=== PATIENT | female | born 1990 ===

== ENCOUNTER 2024-12-28 09:55 | Outpatient (AMB) | payer BC, SELFPAY ==
--- NOTE | 2024-12-28 09:57 | A.OFFPC_ITS ---
Vital Signs 12/28/24 10:00 Height 5 ft 8.31 in Weight 174 lb BMI 26.2 BP 125/74 Blood Pressure Location Rt brachial Position Sitting Pulse 77 Pulse Source Pulse Oximeter Temp 99.6 F Temp Source Oral Pulse Oximetry (%) 95 Oxygen Delivery Method Room Air Intake Visit Reasons: SPACER TYPE BAR AND SEGMENT warts hands Accompanied by: Self / Same As Patient Allergies No Known Allergies Allergy (Verified 12/28/24 09:58) Tobacco use date assessed: 12/28/24 Dental Screening Dental Screen Date: 12/28/24 Did you have a dental visit in the last 12 months?: Yes Was dental information given to patient?: Patient has dentist HPI HPI Comments History of Present Illness Details History of Present Illness The patient is a 34-year-old female presenting with management of warts. Warts: - The patient reports having warts for a pproximately seven years, which have been spreading and causing discomfort. - She [facility] and was referred to a portal architect but requires a primary care referral to proceed. Asthma: - The patient has a history of asthma, w ith no recent emergency room visits for asthma attacks, although she experienced an allergic reaction in February. - She reports that her inhaler is runnin g low, and she anticipates increased symptoms during the winter months. Depression and Anxiety: - The patient has been diagnosed with se von anxiety and depression, for which she is currently under the care of a psychiatrist and therapist. - She is on medications including clonaz epam and escitalopram and attends therapy sessions bi-weekly. Alcohol Use: - The patient reports consuming alcohol approximately three times a week, often in response to stress or social situations. - She acknowledges difficulty in control ling her alcohol intake and is working on managing her anxiety to reduce self-medication. Preventative Care: Pap Smear: - The patient has never had a Pap smear and is aware of its importance in screening for cervical cancer. - She expresses readiness to undergo the procedure and discusses options for having it done with her primary care physician or an IRRIGATION FLUME LAYER. Review of Systems - Respiratory: Denies wheezing, reports asthma managed with inhaler. - Psychiatric: Reports depression and an xiety, managed with medication and therapy. - Gastrointestinal: Reports history of g astric sleeve surgery, current eating habits minimal due to stress. 10-point ROS reviewed and negative excep t as noted in HPI Past Medical History - Asthma, managed with inhaler - Depression and anxiety, managed with c lonazepam and escitalopram - History of gastric sleeve surgery perf ormed three years ago in [facility] Maintenance - Preventative care: Pap smear discussed for cervical cancer screening - Blood work ordered to establish [facility] health status Physical Exam General: Well-appearing, in no acute distress. Vital signs: Within normal limits. HEENT: Normocephalic, atraumatic. PERRLA, EOMI. Conjunctiva clear, sclera anicteric. Oropharynx clear, mucous membranes moist. TMs intact bilaterally. Neck: Supple, no lymphadenopathy, no thyromegaly, no JVD or carotid bruits. Cardiovascular: RRR, normal S1/S2, no murmurs, rubs, or gallops. Peripheral pulses 2+ and symmetric. No edema. Respiratory: Lungs clear to auscultation bilaterally, no wheezes, rales, or rhonchi. Normal effort. No wheezing noted during examination. Abdomen: Soft, non-tender, non-distended. Normoactive bowel sounds. No hepatosplenomegaly, no masses. MSK: Full range of motion, no joint swelling or deformity. Normal gait. Skin: Warm, dry, intact. No rashes, lesions, or pallor. Presence of calluses noted, spreading and causing discomfort. Neuro: Alert and oriented x3. Cranial nerves II-XII intact. Strength 5/5 throughout. Sensation intact. Reflexes 2+ symmetric. Normal coordination and gait. Psych: Appropriate mood and affect. Normal judgment and insight. Patient reports depression and severe anxiety, currently under treatment with clonazepam and escitalopram, and sees a therapist and psychiatrist regularly. Plan 1. Warts - Referral to portal architect provided for further evaluation and management. - Topical medication prescribed to manag e symptoms until dermatology appointment. 2. Asthma - Prescription for albuterol inhaler sen t to pharmacy to manage asthma symptoms. 3. Depression And Anxiety - Continued management with clonazepam a nd escitalopram, with ongoing therapy sessions. 4. Alcohol Use - Encouraged to continue working on duy ging anxiety to reduce alcohol consumption. 5. Preventative Care: Pap Smear - Discussed the importance of Pap smear for cervical cancer screening and offered to perform the procedure or refer to IRRIGATION FLUME LAYER. Discussion Notes During the visit, I discussed the management of the patient's warts, including a referral to a portal architect and the use of topical medication. We reviewed her asthma management, ensuring she has an albuterol inhaler. I emphasized the importance of regular therapy for her depression and anxiety and encouraged her to manage her alcohol use. We also discussed the significance of a Pap smear for cervical cancer screening, offering to perform it or refer her to an IRRIGATION FLUME LAYER. Patient was informed and verbally consented to the use of an ambient scribe for clinic note documentation during this visit. Patient Instructions - Follow up with the portal architect as sc heduled for warts management. - Use the prescribed topical medication for warts until the dermatology appointment. - Use the albuterol inhaler as needed fo r asthma symptoms. - Continue attending therapy sessions an d taking prescribed medications for depression and anxiety. - Consider scheduling a Pap smear for ce rvical cancer screening. Total time spent caring for the patient today was 30 minutes. This includes time spent before the visit reviewing the chart, time spent documenting, and time spent reviewing laboratory results, diagnostic imaging, medications, performing a medically necessary evaluation, counseling on diagnoses, care co ordination, ordering appropriate tests, ordering appropriate medications. [facility] Medical History (Updated 12/28/24 @ 10:22 by Lake Waller MD) Warts Family History (Updated 12/28/24 @ 10:07 by Wendy Blas CMA) Mother No problems noted. Father Diabetes Social History Housing: House Patient Tobacco Use Status: Current someday Tobacco user service: No Current occupational status: employed Cognitive needs: No Hearing needs: No Vision needs: No Questionnaire PHQ-9 Over the last 2 weeks, how often have you been bothered by any of the following problems? 1. Little interest or pleasure in doing things: not at all 2. Feeling down, depressed, or hopeless: several days 3. Trouble falling or staying asleep, or sleeping too much: several days 4. Feeling tired or having little energy: several days 5. Poor appetite or overeating: several days 6. Feeling bad about yourself - or that you are a failure or have let yourself or your family down: several days 7. Trouble concentrating on things, such as reading the newspaper or watching television: several days 8. Moving or speaking so slowly that other people could have noticed. Or the opposite - being so fidgety or restless that you have been moving around a lot more than usual: not at all 9. Thoughts that you would be better off or of hurting yourself in some way: not at all Total score: 6 Depression Screening Interpretation: Negative Depression Screening Done: Yes Source: Developed by Drs. Tereso Resendiz, Nery Hernández, Negro Wick and colleagues, with an educational bienvenido from [employer]. Thrive Questionnaire Date Thrive assessed: 12/28/24 I am a: Patient What is your living situation today?: I have a steady place to live Within the past 12 months, did the food you bought not last and you didn't have the money to get more?: Sometimes True Within the past 12 months, did you worry whether your food would run out before you got money to buy more?: Sometimes True Do you have trouble paying for medicines?: No Do you have trouble getting transportation to medical appointments?: No Do you have trouble paying your heating and electricity bill?: Yes Do you have trouble taking care of your child, family member or friend?: No Are you currently unemployed and looking for a job?: No Are you interested in more education?: I choose not to answer this question Please select the resources that you would like help with: Utilities Currently or been in a relationship where the following occur: I choose not to answer THRIVE Score: 3 AUDIT C Alcohol Use Questionnaire (AUDIT-C) 1. How often do you have a drink containing alcohol?: 2-3 times a week 2. How many drinks containing alcohol do you have on a typical day when you are drinking?: 3 or 4 3. How often do you have six or more drinks on one occasion?: Weekly Total Score: 7 Score Reviewed/Action Taken: Yes VINICIO-7 AMB Questionnaire VINICIO-7 Date VINICIO - 7 assessed: 12/28/24 Feeling nervous, anxious, or on edge: 3 = Nearly every day Not being able to stop or control worryin = Nearly every day Worrying too much about different things: 3 = Nearly every day Trouble relaxin = Nearly every day Being so restless that it is hard to sit still: 3 = Nearly every day Becoming easily annoyed or irritable: 3 = Nearly every day Feeling afraid as if something awful might happen: 3 = Nearly every day Total VINICIO-7 score (0-4 normal; 5-9 mild; 10-14 moderate; 15-21 severe): 21 Source: Developed by Drs. Tereso Resendiz, Nery Hernández, Negro Wick and colleagues, with an educational bienvenido from [employer]. Physical exam (Primary Care) Vital Signs: Last Vital Signs Temp 99.6 F 12/28/24 10:00 Pulse 77 12/28/24 10:00 BP 125/74 12/28/24 10:00 Pulse Ox 95 12/28/24 10:00 Oxygen Delivery Method Room Air 12/28/24 10:00 BMI result Body Mass Index 26.2 Tobacco/Smoking Status: Tobacco use Status Tobacco use date assessed 12/28/24 12/28/24 10:08 Patient Tobacco Use Status Current someday Tobacco 12/28/24 10:08 PHQ-9: PHQ-9 Score PHQ-9: Total score 6 12/28/24 10:08 Depression Screening Interpretation: Negative Thrive Assessment: Date of Thrive Assessment Date Thrive assessed 12/28/24 12/28/24 10:08 Currently or been in a relationship where the following occur: I choose not to answer Coding Level of Care Code New Pt Level 4 (62926) Diagnoses Warts B07.9 Mild intermittent asthma J45.20 Anxiety and depression F41.9; F32.A Alcohol use F10.90 History of gastric bypass Z98.84 Assessment & Plan Assessment & Plan (1) Warts: Code(s): B07.9 - Viral wart, unspecified Category: Medical (2) Mild intermittent asthma: Code(s): J45.20 - Mild intermittent asthma, uncomplicated (3) Anxiety and depression: Code(s): F41.9 - Anxiety disorder, unspecified; F32.A - Depression, unspecified (4) Alcohol use: Code(s): F10.90 - Alcohol use, unspecified, uncomplicated (5) History of gastric bypass: Code(s): Z98.84 - Bariatric surgery status Plan Orders: Orders Chlamydia Species Ab Panel Today Z13.9 - Encounter for screening, unspecified Hepatitis B Surface Antigen Today Z13.9 - Encounter for screening, unspecified Hepatitis C Antibody Today Z13.9 - Encounter for screening, unspecified Magnesium Today Z13.9 - Encounter for screening, unspecified Vitamin B12 and Folate Today Z13.9 - Encounter for screening, unspecified Vitamin B2 (Riboflavin) Today Z13.9 - Encounter for screening, unspecified Vitamin D 1,25 dihydroxy Today Z13.9 - Encounter for screening, unspecified Vitamin B6 Today Z13.9 - Encounter for screening, unspecified Vitamin B5 (Pantothenic Acid) Today Z13.9 - Encounter for screening, unspecified Complete Blood Count Auto Diff Today Z13.9 - Encounter for screening, unspecified Comprehensive Met. Panel Today Z13.9 - Encounter for screening, unspecified Hemoglobin A1c Today Z13.9 - Encounter for screening, unspecified CT NG by PCR Urine Today Z13.9 - Encounter for screening, unspecified Hepatitis B Surface Antibody Today Z13.9 - Encounter for screening, unspecified HIV Ab/Ag Today Z13.9 - Encounter for screening, unspecified Lipid Panel Today Z13.9 - Encounter for screening, unspecified Syphilis Screen Today Z13.9 - Encounter for screening, unspecified TSH reflex Free T4 Today Z13.9 - Encounter for screening, unspecified Zinc Today Z13.9 - Encounter for screening, unspecified Vitamin B3 (Niacin) Today Z13.9 - Encounter for screening, unspecified Vitamin B1 Today Z13.9 - Encounter for screening, unspecified Referrals Dermatology Referral B07.9 - Viral wart, unspecified Medications: New albuterol sulfate 90 mcg/actuation (Ventolin HFA) 2 puffs inhalation Q6H PRN 8.5 grams 0RF shortness of breath or wheezing salicylic acid 26% Apply to affected areas at bedtime 1 appl topical BEDTIME 10 mL 0RF B07.9 - Viral wart, unspecified
[2024-12-28 10:00] VITALS: BP 125/74; PULSE 77; TEMP 37.6; O2SAT 95; BMI 26.2
--- OUTSIDE RECORDS SUMMARY | 2024-12-28 11:36 | XMS_ITS | Clinical Summary ---
Author Organization [facility] Address [address] [place] [address] Phone Care Team Providers Care Communications And Signals Supervisor Name Role Phone Physician, No Pcp Primary Care Provider Unavaila ble Allergies Active Allergy Reactions Criticality Noted Date Comments [place] Anaphylaxis High 03/16/2024 Medications famotidine (PEPCID) 20 mg tablet Take 1 tablet (20 mg total) by mouth 2 (two) times a day. 10 tablet 03/16/2024 Active predniSONE (DELTASONE) 20 mg tablet Take 1 tablet (20 mg total) by mouth 1 (one) time each day. 10 tablet 03/16/2024 Active EPINEPHrine (EPIPEN) 0.3 mg/0.3 mL injection Inject 0.3 mL (0.3 mg total) into the thigh if needed for anaphylaxis . 1 each 03/16/2024 Active Surgical History Surgery Date Site/Laterality Comments OTHER SURGICAL HISTORY PROCEDURE: DENIES PREVIOUS SURGERY Family History Medical History Relation Name Comments Diabetes Father Hypertension Father Migraines Mother Stomach cancer Mother Relation Name Status Comments Brother Alive Father Alive Mother Alive Sister Alive Social History Tobacco Use Types Packs/Day Years Used Date Smoking Tobacco: Former Cigarettes Q uit: 05/22/2018 Smokeless Tobacco: Never Alcohol Use Standard Drinks/Week Comments Yes 0 (1 standard drink = 0.6 oz pur e alcohol) Comments Unknown Sex and Gender Information Value Date Recorded Sex Assigned at Not on file Legal Sex Female 4:16 AM EST Gender Identity Not on file Sexual Orientation Not on file Obstetrics History Last Filed Vital Signs Vital Sign Reading Time Taken Comments Blood Pressure 121/53 03/15/2024 11:08 PM EST Pulse 107 03/15/2024 11:08 PM EST Temperature - - Respiratory Rate 18 03/15/2024 11:08 PM EST Oxygen Saturation 98% 03/15/2024 11:08 PM EST Inhaled Oxygen Concentration - - Weight - - Height - - Body Mass Index - - Plan of Treatment Health Maintenance Due Date Last Done Comments DTaP,Tdap,and Td Vaccines (1 - Tdap) 2010 Hepatitis B Vaccines (1 of 3 - 19+ 3-dose series) 2010 Cervical Cancer Screening: P ap Smear 02/26/2012 HPV Vaccines (1 - 3-dose SCD M series) 2018 Pneumococcal Vaccine: Pediat rics (0 to 5 Years) and At-Risk Patients (6 to 49 Years) (2 of 2 - PCV) 04/21/2019 04/21/2018 Cholesterol Screening (Lipid Panel) 03/16/2024 HIV Screening 03/16/2024 Hepatitis C Screening 03/16/2024 Social Influencers of Health Screening 03/16/2024 Depression Screening 03/24/2024 COVID-19 Vaccine ( - 2023-2 5 season) 2024 Influenza Vaccine (#1) 2024 RSV Immunization Adult Patie nts (1 - 1-dose 75+ series) 2066 HIB Vaccines Aged Out No longer eligi ble based on patient's age to complete this topic Hepatitis A Vaccines Aged Out No long er eligible based on patient's age to complete this topic IPV Vaccines Aged Out No longer eligi ble based on patient's age to complete this topic MMR Vaccines Aged Out No longer eligi ble based on patient's age to complete this topic Meningococcal ACWY Vaccine Aged Out N o longer eligible based on patient's age to complete this topic Meningococcal B Vaccine Aged Out No l onger eligible based on patient's age to complete this topic RSV Immunization Patients Un librado 20 months Aged Out No longer eligible b ased on patient's age to complete this topic Varicella Vaccines Aged Out No longer eligible based on patient's age to complete this topic Insurance [facility] [employer] [place] [id number] Care Teams Communications And Signals Supervisor Relationship Specialty Start Date End Date Physician, No Pcp PCP - General 03/15/24
== END 2024-12-28 10:32 | disposition home or self-care (01) ==
LOC: HO.HMCFMS 09:56
PROVIDERS: Visit Provider Student in an Organized Health Care Education/Training Program
DX: J45.20 Mild intermittent asthma, uncomplicated (principal); B07.9 Viral wart, unspecified; F41.9 Anxiety disorder, unspecified; F32.A Depression, unspecified; F10.90 Alcohol use, unspecified, uncomplicated; Z98.84 Bariatric surgery status

== ENCOUNTER 2025-02-03 16:30 | Outpatient (AMB) | payer BC, SELFPAY ==
--- NOTE | 2025-02-03 16:37 | MHC.OFFVIS ---
Intake Visit Reasons: 2 wk f/u - pt r/s'd from 01/11 Allergies No Known Allergies Allergy (Verified 12/28/24 09:58) PFSH Medical History (Updated 12/28/24 @ 10:22 by Lake Waller MD) Warts Family History (Updated 12/28/24 @ 10:07 by Wendy Blas CMA) Mother No problems noted. Father Diabetes Social History Housing: House Patient Tobacco Use Status: Current someday Tobacco user service: No Current occupational status: employed Cognitive needs: No Hearing needs: No Vision needs: No Coding
[2025-02-03 16:40] VITALS: BP 131/73; PULSE 80; RESP 16; TEMP 36.7; O2SAT 98; BMI 26.2
--- NOTE | 2025-02-03 16:41 | A.OFFPC_ITS ---
Vital Signs 02/03/25 16:40 Height 5 ft 8.31 in Weight 174 lb BMI 26.2 BP 131/73 Blood Pressure Location Rt brachial Position Sitting Respiration 16 Pulse 80 Pulse Source Pulse Oximeter Temp 98.1 F Temp Source Oral Pulse Oximetry (%) 98 Oxygen Delivery Method Room Air Intake Visit Reasons: 2 wk f/u - pt r/s'd from 01/11 Allergies No Known Allergies Allergy (Verified 02/03/25 16:41) Medication List - Last Reconciled 02/03/25 by Lake Waller MD albuterol sulfate 90 mcg/actuation (Ventolin HFA) 2 puffs inhalation Q6H PRN cholecalciferol (vitamin D3) 1,250 mcg PO QWEEK clonazepam 0.5 mg PO BID PRN epinephrine 0.3 mL IM escitalopram oxalate 5 mg PO DAILY hydroxyzine pamoate 25 mg PO DAILY mecobalamin (vitamin B12) 1,000 mcg sublingual BEDTIME naltrexone 50 mg PO DAILY salicylic acid 26% 1 appl topical BEDTIME Tobacco use date assessed: 12/28/24 Dental Screening Dental Screen Date: 12/28/24 HPI HPI Comments History of Present Illness Details History of Present Illness The patient is a 34-year-old female presenting for a review of laboratory results. Abnormal syphilis serology: The patient's recent lab results from an outside facility showed a reactive RPR with a quant of 1:2. The result is considered abnormal and suggests a possible syphilis infection. The patient has a female sexual partner. Vitamin D deficiency: Recent lab work revealed a low vitamin D level, which requires supplementation. Asthma: The patient uses an albuterol inhaler and reported that her recent prescription was not filled at the pharmacy. Hand blisters and warts : The patient has blisters on her hands, which she attributes to work. She reports the lesions are improving with a previously prescribed medication. Medications: - Albuterol inhaler for asthma - salicylic acid for warts Social History: - Sexual history: Patient has a female s exual partner. 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 Diagnostic Results: - TSH/Free T4: Within normal limits. - CBC: Within normal limits, with no sig ns of anemia or infection. - CMP: Normal, including glucose, kidney function, electrolytes, calcium, and liver function. - Lipid panel: Normal. - Mycoplasma, chlamydia, gonorrhea scree n: Negative. - Vitamin B12: 300 (reference range cuto ff is 232). - Folate: Normal. - Vitamin B1, B2, B3, B5, B6: Normal. - HIV: Negative. - Hepatitis C: Negative. - Hemoglobin A1c: Normal, non-diabetic r mook. - Hepatitis B antibody quant: 799, indic ating immunity. - Vitamin D: Low. - RPR: Reactive, abnormal. - RPR quant: 1:2. - Magnesium: Good. - Zinc: Good. Past Medical History - Asthma - History of Hepatitis B vaccination Health Maintenance - Lab screening performed, including com plete blood count, complete metabolic panel, lipid panel, TSH, HbA1c, vitamins (B1, B2, B3, B5, B6, B12, D), zinc, and magnesium. - STI screening performed for syphilis, mycoplasma, chlamydia, gonorrhea, HIV, and Hepatitis B/C. - Patient has immunity to Hepatitis B, l ikely from vaccination. ON LICENSE OF [facility] Medical History (Updated 02/03/25 @ 21:02 by Lake Waller MD) Mild intermittent asthma Low serum vitamin B12 Vitamin D deficiency Warts Family History (Updated 12/28/24 @ 10:07 by Wendy Blas CMA) Mother No problems noted. Father Diabetes Social History Housing: House Patient Tobacco Use Status: Current someday Tobacco user service: No Current occupational status: employed Cognitive needs: No Hearing needs: No Vision needs: No Questionnaire Thrive Questionnaire Date Thrive assessed: 12/28/24 I am a: Patient What is your living situation today?: I have a steady place to live Within the past 12 months, did the food you bought not last and you didn't have the money to get more?: Sometimes True Within the past 12 months, did you worry whether your food would run out before you got money to buy more?: Sometimes True Do you have trouble paying for medicines?: No Do you have trouble getting transportation to medical appointments?: No Do you have trouble paying your heating and electricity bill?: Yes Do you have trouble taking care of your child, family member or friend?: No Are you currently unemployed and looking for a job?: No Are you interested in more education?: I choose not to answer this question Please select the resources that you would like help with: Utilities Currently or been in a relationship where the following occur: I choose not to answer THRIVE Score: 3 VINICIO-7 AMB Questionnaire VINICIO-7 Date VINICIO - 7 assessed: 12/28/24 Source: Developed by Drs. Tereso Resendiz, Nery Hernández, Negro Wick and colleagues, with an educational bienvenido from [employer]. Review of Systems Narrative Review of Systems - Constitutional: Denies fever. - Genitourinary: Denies ulcers on private parts. - Integumentary: Reports work-related blisters on hands, which are improving. Denies other rashes or lesions. 10-point ROS reviewed and negative except as noted in HPI Physical exam (Primary Care) Vital Signs: Last Vital Signs Temp 98.1 F 02/03/25 16:40 Pulse 80 02/03/25 16:40 Resp 16 02/03/25 16:40 BP 131/73 02/03/25 16:40 Pulse Ox 98 02/03/25 16:40 Oxygen Delivery Method Room Air 02/03/25 16:40 BMI result Body Mass Index 26.2 Tobacco/Smoking Status: Tobacco use Status Tobacco use date assessed 12/28/24 02/03/25 16:43 Patient Tobacco Use Status Current someday Tobacco 02/03/25 16:43 Thrive Assessment: Date of Thrive Assessment Date Thrive assessed 12/28/24 02/03/25 16:43 Currently or been in a relationship where the following occur: I choose not to answer Narrative Physical Exam General: Well-appearing, in no acute distress. Vital signs: Within normal limits. HEENT: Normocephalic, atraumatic. PERRLA, EOMI. Conjunctiva clear, sclera anicteric. Oropharynx clear, mucous membranes moist. TMs intact bilaterally. Neck: Supple, no lymphadenopathy, no thyromegaly, no JVD or carotid bruits. Cardiovascular: RRR, normal S1/S2, no murmurs, rubs, or gallops. Peripheral pulses 2+ and symmetric. No edema. Respiratory: Lungs clear to auscultation bilaterally, no wheezes, rales, or rhonchi. Normal effort. Abdomen: Soft, non-tender, non-distended. Normoactive bowel sounds. No hepatosplenomegaly, no masses. MSK: Full range of motion, no joint swelling or deformity. Normal gait. Skin: Warm, dry, intact. No rashes, lesions, or pallor. Blisters on hands noted, likely from work-related activities, improving with treatment. Neuro: Alert and oriented x3. Cranial nerves II-XII intact. Strength 5/5 throughout. Sensation intact. Reflexes 2+ symmetric. Normal coordination and gait. Psych: Appropriate mood and affect. Normal judgment and insight. Coding Level of Care Code Est Pt Level 3 (93256) Diagnoses Warts B07.9 Vitamin D deficiency E55.9 Low serum vitamin B12 E53.8 Mild intermittent asthma J45.20 Positive RPR test A53.0 Callus L84 Assessment & Plan Assessment & Plan (1) Warts: Code(s): B07.9 - Viral wart, unspecified Category: Medical (2) Vitamin D deficiency: Code(s): E55.9 - Vitamin D deficiency, unspecified Category: Medical (3) Low serum vitamin B12: Code(s): E53.8 - Deficiency of other specified B group vitamins Category: Medical (4) Mild intermittent asthma: Code(s): J45.20 - Mild intermittent asthma, uncomplicated Category: Medical (5) Positive RPR test: Code(s): 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 She understands the rationale for confirming the diagnosis before initiating treatment or partner notification and verbally consented to having the labs redrawn at this facility. Patient was informed and verbally consented to the use of an ambient scribe for clinic note documentation during this visit. Plan 1. Abnormal Syphilis Serology - The patient's reactive RPR (1:2) from an outside lab is noted. - Plan to repeat syphilis testing at this clinic for confirmation. - Will call the outside lab ([facility]) to clarify the initial result and inquire if any reflex testing was performed. - Counseled the patient to abstain from sexual activity pending confirmatory results. - Discussed that if the test is confirmed positive, treatment will be initiated and her partner will also need to be tested and treated. 2. Vitamin D Deficiency - The patient has low Vitamin D levels. - Will prescribe Vitamin D to be taken once a week. 3. Low Normal Vitamin B12 - The patient's Vitamin B12 level is 300. - Discussed that this level, while within the lab's normal range, is on the lower end and could be supplemented. 4. Asthma - Patient reported she was unable to obtain her albuterol inhaler from the pharmacy. - Resent prescription for albuterol to [facility]. 5. Hand Blisters and warts - Patient reports her work-related hand blisters are improving with a previously provided medication. - Sent a refill for the medication to her pharmacy. Discussion Notes I reviewed the patient's comprehensive lab results with her. I noted that while most results were normal, her Vitamin D was low and her RPR test for syphilis was reactive at a 1:2 titer from an outside lab. I explained that a reactive RPR can indicate syphilis, but because the test was done externally and did not include a confirmatory test, we should repeat it here to be certain. I counseled her to abstain from sexual activity until we have a confirmed result, and we discussed that if the repeat test is positive, she will require treatment and her partner should also be tested. I also addressed her other concerns by prescribing weekly Vitamin D and sending refills for her albuterol inhaler and the topical medication for her hands, which she reports is effective. Patient Instructions - Your lab results were mostly normal, but one test for syphilis came back positive. - We need to repeat this test to be sure, so please go to our clinic's lab to have your blood drawn. - Please avoid any sexual activity until we get the results of the new test. - Wait for the results of the repeat test before discussing this with your partner. - Your vitamin D level is low. I have prescribed a vitamin D supplement for you to take once a week. - I have sent a new prescription for your albuterol inhaler to [facility]. - I have also sent a refill for the medication for the blisters on your hands. Medical Decision Making The patient is a 34-year-old female who presented for a review of extensive laboratory testing. The majority of her results, including CBC, CMP, lipids, thyroid function, and most STI screenings, were within normal limits. The primary finding of concern is a reactive RPR with a 1:2 titer from an outside laboratory, which is suspicious for syphilis. Given the lack of a confirmatory test (e.g., FTA-ABS) from the outside lab and the possibility of a false positive, the most appropriate next step is to obtain confirmatory testing at our own facility. The plan is to withhold treatment and partner notification until the diagnosis is confirmed to avoid unnecessary intervention and anxiety. The patient was counseled on risk reduction by abstaining from sexual contact in the interim. Other clinically significant findings include a low vitamin D level, for which once-weekly supplementation was prescribed. Her low-normal B12 level was noted, and the possibility of future supplementation was mentioned. Prescriptions for her albuterol inhaler and a topical for her resolving hand blisters were also refilled to ensure continuity of care. Total Time Statement 20 min Total time spent caring for the patient today includes pre-visit chart review, documentation, review of laboratory and diagnostic imaging results, medication reconciliation, medically necessary evaluation, counseling on diagnoses, care coordination, ordering appropriate tests and medications, review of tests performed by other providers, reporting test results to the patient, and communication with other healthcare providers. Orders: Orders Syphilis Screen Today Z13.9 - Encounter for screening, unspecified Medications: New cholecalciferol (vitamin D3) 1,250 mcg PO QWEEK 12 caps 0RF mecobalamin (vitamin B12) place tablet under tongue and allow to dissolve for at least30 secs before swallowing 1,000 mcg sublingual BEDTIME 90 tabs 0RF Refilled albuterol sulfate 90 mcg/actuation (Ventolin HFA) 2 puffs inhalation Q6H PRN 8.5 grams 0RF shortness of breath or wheezing salicylic acid 26% Apply to affected areas at bedtime 1 appl topical BEDTIME 10 mL 0RF B07.9 - Viral wart, unspecified
--- OUTSIDE RECORDS SUMMARY | 2025-02-03 18:53 | XMS_ITS | Clinical Summary ---
Author Organization [facility] Address [address] [place] [address] Phone Care Team Providers Care Market Superintendent Name Role Phone Physician, No Pcp Primary Care Provider Unavaila ble Allergies Active Allergy Reactions Criticality Noted Date Comments [place] Anaphylaxis High 03/16/2024 Medications famotidine (PEPCID) 20 [...] Years Used Date Smoking Tobacco: Former Cigarettes 0 Q uit: 05/22/2018 Smokeless Tobacco: Never Alcohol [...] Screening 03/16/2024 Depression Screening 03/24/2024 COVID-19 Vaccine (1 - 2024-2 6 season) 2024 Influenza Vaccine (#1) 2024 RSV [...] patient's age to complete this topic Insurance [facility] [place] [place] [id number] Care Teams Market Superintendent Relationship Specialty Start Date End Date Physician, No Pcp PCP - General 03/15/24
== END 2025-02-03 16:57 | disposition home or self-care (01) ==
LOC: HO.HMCFMS 16:31
PROVIDERS: PCP Internal Medicine; Visit Provider Student in an Organized Health Care Education/Training Program
DX: J45.20 Mild intermittent asthma, uncomplicated (principal); E55.9 Vitamin D deficiency, unspecified; E53.8 Deficiency of other specified B group vitamins; A53.0 Latent syphilis, unspecified as early or late; S60.521D Blister (nonthermal) of right hand, subsequent encounter; S60.5 Other superficial injuries of hand